=== PATIENT | female | born 1995 | race Caucasian/White ===

== ENCOUNTER 2019-06-25 16:39 | Emergency (ER) | payer BC, MEDICAID, OTHER ==
--- NOTE | 2019-06-25 17:42 | EDM.PDOC ---
ED HPI GENERAL MEDICAL PROBLEM - General Chief Complaint: ENT Problem Stated Complaint: EAR PAIN Time Seen by Provider: 06/25/19 17:33 Source of Information: Reports: Patient History Limitations: Reports: No Limitations - History of Present Illness INITIAL COMMENTS - FREE TEXT/NARRATIVE: HISTORY AND PHYSICAL: History of present illness: Patient is a 24-year-old female presents to the ED today with concern of left- sided ear discomfort and feeling like both of her ears are "muffled." Patient states she was in the shower and was using Q-tips in her ears and noticed that when she got out of the shower she noticed the "muffled" sound in both of her ears. Patient states she then started getting pain in the left side of her ear. Patient states she has not taken anything for her symptoms and denies any other symptoms or concerns. Patient denies fever, chills, chest pain, shortness of breath, or cough. Denies headache, neck stiff ness, change in vision, syncope, or near syncope. Denies nausea, vomiting, abdominal pain, diarrhea, constipation, or dysuria. Has not noted any blood in urine or stool. Patient has been eating and drinking appropriately. Review of systems: As per history of present illness and below otherwise all systems reviewed and negative. Past medical history: As per history of present illness and as reviewed below otherwise noncontributory. Surgical history: As per history of present illness and as reviewed below otherwise noncontributory. Social history: See social history for further information Family history: As per history of present illness and as reviewed below otherwise noncontributory. Physical exam: General: Patient is alert, oriented, and in no acute distress. Patient sitting comfortably on exam table. HEENT: Atraumatic, normocephalic, pupils equal and reactive bilaterally, negative for conjunctival pallor or scleral icterus, mucous membranes moist, there is a large amount of cerumen impacted in bilateral ears, I am able to visualize the right TM which is normal, but unable to visualize the left TM due to cerumen impaction, throat clear, neck supple, nontender, trachea midline. No drooling or trismus noted. No meningeal signs. No hot potato voice noted. Lungs: Clear to auscultation, breath sounds equal bilaterally, chest nontender. Heart: S1S2, regular rate and rhythm without overt murmur Abdomen: Soft, nondistended, nontender. Negative for masses or hepatosplenomegaly. Negative for costovertebral tenderness. Pelvis: Stable nontender. Genitourinary: Deferred. Rectal: Deferred. Skin: Intact, warm, dry. No lesions or rashes noted. Extremities: Atraumatic, negative for cords or calf pain. Neurovascular unremarkable. Neuro: Awake, alert, oriented. Cranial nerves II through XII unremarkable. Cerebellum unremarkable. Motor and sensory unremarkable throughout. Exam nonfocal. Notes: I did try to remove the cerumen of the left external auditory canal with an ear wisp. I was unable to do this as the cerumen is quite hard and impacted. I did offer irrigating the ear in order to visualize the tympanic membrane but patient declines at this time. Discussed the importance for follow-up with a primary care provider. Voices understanding and is agreeable to plan of care. Denies any further questions or concerns at this time. Diagnostics: None Therapeutics: None Prescription: None Impression: Bilateral cerumen impaction Plan: 1. Use [id number] Debrox drops as directed and as discussed. 2. You can alternate ibuprofen and Tylenol as directed for pain and discomfort. 3. Follow up with her primary care provider as discussed. Return to the ED as needed and as discussed. Definitive disposition and diagnosis as appropriate pending reevaluation and review of above. BOTH EARS Pain Score (Numeric/FACES): 6 - Related Data Allergies Allergy/AdvReac Type Severity Reaction Status Date / Time No Known Allergies Allergy Verified 06/25/19 17:16 Home Meds: Home Meds . [No Known Home Meds] 06/25/19 [History] Past Medical History - Past Health History Medical/Surgical History: Denies Medical/Surgical History Social & Family History - Family History Family Medical History: Noncontributory - Tobacco Use Smoking Status *Q: Never Smoker - Caffeine Use Caffeine Use: Reports: None - Recreational Drug Use Recreational Drug Use: No ED ROS GENERAL - Review of Systems Review Of Systems: Comprehensive ROS is negative, except as noted in HPI. ED EXAM, GENERAL - Physical Exam Exam: See Below (See dictation) Course - Vital Signs Last Recorded V/S: Last Vital Signs Temp 97.8 F 06/25/19 18:16 Pulse 71 06/25/19 17:16 Resp 16 06/25/19 17:16 BP 116/75 06/25/19 17:16 Pulse Ox 98 06/25/19 17:16 Departure - Departure Time of Disposition: 17:41 Disposition: Home, Self-Care 01 Clinical Impression: Cerumen impaction Qualifiers: Laterality: bilateral Qualified Code(s): H61.23 - Impacted cerumen, bilateral - Discharge Information Instructions: Earwax Buildup, Adult Referrals: PCP,None [Primary Care Provider] - Forms: ED Department Discharge Additional Instructions: The following information is given to patients seen in the emergency department who are being discharged to home. This information is to outline your options for follow-up care. We provide all patients seen in our emergency department with a follow-up referral. The need for follow-up, as well as the timing and circumstances, are variable depending upon the specifics of your emergency department visit. If you don't have a primary care physician on staff, we will provide you with a referral. We always advise you to contact your personal physician following an emergency department visit to inform them of the circumstance of the visit and for follow-up with them and/or the need for any referrals to a consulting specialist. The emergency department will also refer you to a specialist when appropriate. This referral assures that you have the opportunity for follow-up care with a specialist. All of these measure are taken in an effort to provide you with optimal care, which includes your follow-up. Under all circumstances we always encourage you to contact your private physician who remains a resource for coordinating your care. When calling for follow-up care, please make the office aware that this follow-up is from your recent emergency room visit. If for any reason you are refused follow-up, please contact the [facility] Emergency Department at and asked to speak to the emergency department charge nurse. [facility] [address] [place] [id number] [facility] [address] [place] [id number] 1. Use [id number] Debrox drops as directed and as discussed. 2. You can alternate ibuprofen and Tylenol as directed for pain and discomfort. 3. Follow up with her primary care provider as discussed. Return to the ED as needed and as discussed.
== END 2019-06-25 18:16 | disposition home or self-care (01) ==
LOC: MW.ED 16:39
DX: H61.23 Impacted cerumen, bilateral (principal)
CPT/HCPCS: 99282

== ENCOUNTER 2020-03-21 15:58 | Emergency (ER) | payer MEDICAID ==
--- NOTE | 2020-03-21 16:36 | EDM.PDOC ---
ED HPI GENERAL MEDICAL PROBLEM - General Chief Complaint: General Stated Complaint: MED CLEAR Time Seen by Provider: 03/21/20 16:05 Source of Information: Reports: Patient History Limitations: Reports: No Limitations - History of Present Illness INITIAL COMMENTS - FREE TEXT/NARRATIVE: HISTORY AND PHYSICAL: History of present illness: Patient is a 25-year-old female who presents to the emergency department by law enforcement for medical clearance exam. Patient states she is asymptomatic and offers no current complaints or concerns. She is currently 14 weeks and is seeing somebody at [facility]. Patient denies any fever, chills, headache, change in vision, syncope or near syncope. Denies any chest pain, back pain, shortness of breath or cough. Denies any abdominal pain, nausea, vomiting, diarrhea, constipation or dysuria. Denies any vaginal bleeding, cramping or concerns with her . Has not noted any blood in urine or stool. Patient has been eating and drinking appropriately. Denies any alcohol or drug abuse. Review of systems: As per history of present illness and below otherwise all systems reviewed and negative. Past medical history: As per history of present illness and as reviewed below otherwise noncontributory. Surgical history: As per history of present illness and as reviewed below otherwise noncontributor y. Social history: See social history for further information Family history: As per history of present illness and as reviewed below otherwise noncontributory. Physical exam: General: Well developed and well nourished 25-year-old female. Alert and orientated x 3. Nontoxic in appearance and in no acute distress. Vital signs are stable and have been reviewed by me. Nursing notes were reviewed. She is accompanied by law enforcement. HEENT: Atraumatic, normocephalic, pupils equal and reactive bilaterally, negative for conjunctival pallor or scleral icterus, mucous membranes moist, trachea midline. No drooling or trismus noted. No meningeal signs. No hot potato voice noted. Lungs: Clear to auscultation, breath sounds equal bilaterally, chest nontender. Normal work of breathing, no accessory muscles used. Heart: S1S2, regular rate and rhythm without overt murmur Abdomen: Soft, nondistended, nontender. Negative for costovertebral tenderness. Pelvis: Stable nontender. Skin: Intact, warm, dry. No lesions or rashes noted. Hematologic: No petechiae or purpra. Mucosa appropriate color and normal nail bed color and refill. Extremities: Atraumatic, moves all extremities per self without difficulty or deficits, negative for cords or calf pain. Neurovascular unremarkable. Neuro: Awake, alert, oriented. Cranial nerves II through XII unremarkable. Cerebellum unremarkable. Motor and sensory unremarkable throughout. Exam nonfocal. Psychiatric: Mood and affect are appropriate. Normal thought process. Answering questions appropriately. Notes: My physical exam is within normal limits. Her vital signs are stable. I will discharge her into the custody of law enforcement. Law enforcement and patient have no specific concerns at this time. We discussed signs and symptoms that would prompt them to return to the Emergency Department. Medication, follow up and supportive care measures were reviewed and discussed. Voices understanding and is agreeable to plan of care. Denies any further questions or concerns at this time. Diagnostics: None Therapeutics: None Prescription: None Impression: Encounter for medical screening exam Plan: 1. Today your physical exam was within normal limits. We always encourage you to follow up with your primary care provider or recommended specialist in the next few days for re-evaluation and further care/management. If your symptoms should worsen, new symptoms develop or any of the signs and symptoms we discussed should arise please return to the emergency room or call 911 (if needed). 2. You can alternate Tylenol and/or ibuprofen as needed for pain management. Definitive disposition and diagnosis as appropriate pending reevaluation and review of above. - Related Data Allergies Allergy/AdvReac Type Severity Reaction Status Date / Time No Known Allergies Allergy Verified 03/21/20 16:35 Home Meds: Home Meds Pnv No.95/Ferrous Fum/Folic AC [ Caplet] 1 each PO DAILY 03/21/20 [History] Past Medical History - Past Health History Medical/Surgical History: Denies Medical/Surgical History Social & Family History - Family History Family Medical History: Noncontributory - Caffeine Use Caffeine Use: Reports: None ED ROS GENERAL - Review of Systems Review Of Systems: Comprehensive ROS is negative, except as noted in HPI. ED EXAM, GENERAL - Physical Exam Exam: See Below (See dictation) Course - Vital Signs Last Recorded V/S: Last Vital Signs Temp Pulse 69 03/21/20 16:35 Resp 16 03/21/20 16:35 BP 118/68 03/21/20 16:35 Pulse Ox 98 03/21/20 16:35 Departure - Departure Time of Disposition: 16:43 Disposition: Home, Self-Care 01 Clinical Impression: Encounter for medical screening examination - Discharge Information Instructions: Medical Screening Exam Referrals: PCP,None [Primary Care Provider] - Forms: ED Department Discharge Additional Instructions: The following information is given to patients seen in the emergency department who are being discharged to home. This information is to outline your options for follow-up care. We provide all patients seen in our emergency department with a follow-up referral. The need for follow-up, as well as the timing and circumstances, are variable depending upon the specifics of your emergency department visit. If you don't have a primary care physician on staff, we will provide you with a referral. We always advise you to contact your personal physician following an emergency department visit to inform them of the circumstance of the visit and for follow-up with them and/or the need for any referrals to a consulting specialist. The emergency department will also refer you to a specialist when appropriate. This referral assures that you have the opportunity for follow-up care with a specialist. All of these measure are taken in an effort to provide you with optimal care, which includes your follow-up. Under all circumstances we always encourage you to contact your private physician who remains a resource for coordinating your care. When calling for follow-up care, please make the office aware that this follow-up is from your recent emergency room visit. If for any reason you are refused follow-up, please contact the [facility] Emergency Department at and asked to speak to the emergency department charge nurse. [facility] [address] [place] [id number] [id number] Thank you for choosing the [facility] emergency department in [place] for your medical needs today. It was a pleasure caring for you. Today you were seen in the emergency department for encounter for medical screening exam 1. Today your physical exam was within normal limits. We always encourage you to follow up with your primary care provider or recommended specialist in the next few days for re-evaluation and further care/management. If your symptoms should worsen, new symptoms develop or any of the signs and symptoms we discussed should arise please return to the emergency room or call 911 (if needed). 2. You can alternate Tylenol and/or ibuprofen as needed for pain management. Sepsis Event Note (ED) - Focused Exam Vital Signs: Vital Signs Pulse Resp BP Pulse Ox 03/21/20 16:35 69 16 118/68 98
== END 2020-03-21 16:50 | disposition home or self-care (01) ==
LOC: MW.ED 15:58
DX: O99.89 Other specified diseases and conditions complicating pregnancy, childbirth and the puerperium (principal); Z02.89 Encounter for other administrative examinations; Z3A.14 14 weeks gestation of pregnancy
CPT/HCPCS: 99282; 99283

== ENCOUNTER 2020-04-22 13:15 | Emergency (ER) | payer MEDICAID ==
--- NOTE | 2020-04-22 14:40 | EDM.PDOC ---
ED HPI GENERAL MEDICAL PROBLEM - General Chief Complaint: General Stated Complaint: ABCESS TOOTH Time Seen by Provider: 04/22/20 13:20 Source of Information: Reports: Patient History Limitations: Reports: No Limitations - History of Present Illness INITIAL COMMENTS - FREE TEXT/NARRATIVE: HISTORY AND PHYSICAL: History of present illness: Patient is a 25-year-old female who presents to the ED today with concern of dental abscess that I drained just before coming to the ED. Patient states when she was at work she felt the abscess pop and had pus come out of the area. Patient states she is 18 weeks in gestation and denies any abdominal pain, cramping, vaginal bleeding, or change in vaginal discharge. Patient denies any other symptoms or concerns. Patient denies fever, chills, chest pain, shortness of breath, or cough. Denies headache, neck stiff ness, change in vision, syncope, or near syncope. Denies nausea, vomiting, abdominal pain, diarrhea, constipation, or dysuria. Has not noted any blood in urine or stool. Patient has been eating and drinking appropriately. Review of systems: As per history of present illness and below otherwise all systems reviewed and negative. Past medical history: As per history of present illness and as reviewed below otherwise noncontributory. Surgical history: As per history of present illness and as reviewed below otherwise noncontributory. Social history: See social history for further information Family history: As per history of present illness and as reviewed below otherwise noncontributory. Physical exam: General: Patient is alert, oriented, and in no acute distress. Patient sitting comfortably on exam table. HEENT: Tooth #5 has an area of prior abscess that has already been drained with surrounding edema and erythema of the gumline. Otherwise, atraumatic, normocephalic, pupils equal and reactive bilaterally, negative for conjunctival pallor or scleral icterus, mucous membranes moist, TMs normal bilaterally, throat clear, neck supple, nontender, trachea midline. No drooling or trismus noted. No meningeal signs. No hot potato voice noted. Lungs: Clear to auscultation, breath sounds equal bilaterally, chest nontender. Heart: S1S2, regular rate and rhythm without overt murmur Abdomen: Soft, nondistended, nontender. Negative for masses or hepatosplenomegaly. Negative for costovertebral tenderness. Pelvis: Stable nontender. Genitourinary: Deferred. Rectal: Deferred. Skin: Intact, warm, dry. No lesions or rashes noted. Extremities: Atraumatic, negative for cords or calf pain. Neurovascular un remarkable. Neuro: Awake, alert, oriented. Cranial nerves II through XII unremarkable. Cerebellum unremarkable. Motor and sensory unremarkable throughout. Exam nonfocal. Notes: heart tones at bedside 137. Discussed importance for follow-up with a dentist as well as her [employer] provider. Signs and symptoms that would prompt return to the ED thoroughly discussed with patient. Voices understanding and is agreeable to plan of care. Denies any further questions or concerns at this time. Diagnostics: None Therapeutics: None Prescription: Augmentin Impression: Dental abscess Plan: 1. Please take medication as prescribed. 2. Tylenol as directed and as needed for pain management. This is safe to use in . 3. Follow-up with a dentist and your OBGYN for definitive care as discussed. Return to the ED as needed and as discussed. Definitive disposition and diagnosis as appropriate pending reevaluation and review of above. 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 ED EXAM, GENERAL - Physical Exam Exam: See Below (see dictation) Course - Vital Signs Last Recorded V/S: Last Vital Signs Temp 97.4 F 04/22/20 14:06 Pulse 81 09/18/20 14:06 Resp 18 04/22/20 14:06 BP 110/70 04/22/20 14:06 Pulse Ox 98 04/22/20 14:06 - Orders/Labs/Meds Orders: Active Orders 24 hr Category Date Time Status Communication Order [RC] STAT Care 04/22/20 14:35 Active Departure - Departure Time of Disposition: 14:38 Disposition: Home, Self-Care 01 Clinical Impression: Dental abscess - Discharge Information Prescriptions: Amoxicillin/Potassium Clav [Augmentin 500-125 Tablet] 1 each PO BID 5 Days #10 tablet Instructions: Dental Abscess, [id number] Referrals: PCP,None [Primary Care Provider] - Forms: ED Department Discharge Additional Instructions: The following information is given to patients seen in the emergency department who are being discharged to home. This information is to outline your options for follow-up care. We provide all patients seen in our emergency department with a follow-up referral. The need for follow-up, as well as the timing and circumstances, are variable depending upon the specifics of your emergency department visit. If you don't have a primary care physician on staff, we will provide you with a referral. We always advise you to contact your personal physician following an emergency department visit to inform them of the circumstance of the visit and for follow-up with them and/or the need for any referrals to a consulting specialist. The emergency department will also refer you to a specialist when appropriate. This referral assures that you have the opportunity for follow-up care with a specialist. All of these measure are taken in an effort to provide you with optimal care, which includes your follow-up. Under all circumstances we always encourage you to contact your private physician who remains a resource for coordinating your care. When calling for follow-up care, please make the office aware that this follow-up is from your recent emergency room visit. If for any reason you are refused follow-up, please contact the [facility] Emergency Department at and asked to speak to the emergency department charge nurse. [facility] [address] [place] [id number] [address] [facility] [address] [place] [address] 1. Please take medication as prescribed. 2. Tylenol as directed and as needed for pain management. This is safe to use in . 3. Follow-up with a dentist and your OBGYN for definitive care as discussed. Return to the ED as needed and as discussed. Sepsis Event Note (ED) - Evaluation Sepsis Screening Result: No Definite Risk - Focused Exam Vital Signs: Vital Signs Temp Pulse Resp BP Pulse Ox 04/22/20 14:06 97.4 F 81 18 110/70 98 - My Orders Last 24 Hours: My Active Orders 04/22/20 14:35 Communication Order [RC] STAT - Assessment/Plan Last 24 Hours: My Active Orders 04/22/20 14:35 Communication Order [RC] STAT
== END 2020-04-22 15:21 | disposition home or self-care (01) ==
LOC: MW.ED 13:15
DX: O99.612 Diseases of the digestive system complicating pregnancy, second trimester (principal); K04.7 Periapical abscess without sinus; Z3A.18 18 weeks gestation of pregnancy
CPT/HCPCS: 99282

== ENCOUNTER 2020-09-25 21:12 | Inpatient (IN) | payer MEDICAID ==
[2020-09-25] MEDS ORDERED: Water For Irrigation,Sterile 1,000 ML Container IRR PRN (22:18)
[2020-09-25] MEDS ORDERED: Misoprostol 200 MCG Tab PO PRN (22:18)
[2020-09-25] MEDS ORDERED: Sodium Chloride 0.9% 10 ML Syringe FLUSH PRN (22:18)
[2020-09-25] MEDS ORDERED: Butorphanol 1 MG/ML SDV IVPUSH PRN (22:18)
[2020-09-25] MEDS ORDERED: Lidocaine 1% 50 ML MDV INJECT PRN (22:18)
[2020-09-25] MEDS ORDERED: Sodium Chloride 0.9% 10 ML SDV IV PRN (22:18)
[2020-09-25] MEDS ORDERED: Methylergonovine 0.2 MG/1 ML Amp IM PRN (22:18)
[2020-09-25] MEDS ORDERED: Nalbuphine 10 MG/1 ML Vial IVPUSH PRN (22:18)
[2020-09-25] MEDS ORDERED: Sodium Chloride 0.9% 2.5 ML Syringe FLUSH PRN (22:18)
[2020-09-25] MEDS ORDERED: Carboprost Tromethamine 250 MCG/1 ML Amp IM PRN (22:18)
[2020-09-25] MEDS ORDERED: Tranexamic Acid 1,000 MG in Sodium Chloride 0.9% 100 ML IV PRN (22:18)
[2020-09-25] MEDS: Lactated Ringers 1,000 ML IV SCH (22:30)
[2020-09-25] MEDS ORDERED: Oxytocin/0.9 % Sodium Chloride 30 UNIT/500 ML BAG IV SCH (22:30)
[2020-09-25] MEDS ORDERED: fentaNYL 100 MCG/2 ML SDV ONE (23:26)
[2020-09-25] MEDS ORDERED: Ropivacaine HCl/PF 100 ML ONE (23:27)
[2020-09-25] MEDS ORDERED: Ropivacaine 0.2% PF 2 MG/ML 20 ML SDV ONE (23:27)
--- NOTE | 2020-09-26 00:10 | PCM.PREANE ---
Preanesthetic Assessment - Procedure Proposed Procedure: labor epidural - Anesthesia/Transfusion/Family Hx Anesthesia History: Prior Anesthesia Without Reaction (epidural 5 yrs ago. no surgery) Family History of Anesthesia Reaction: No Transfusion History: No Prior Transfusion(s) - Review of Systems General: No Symptoms Pulmonary: No Symptoms Cardiovascular: No Symptoms Gastrointestinal: No Symptoms Neurological: No Symptoms Other: Reports: None - Physical Assessment Height: 5 ft Weight: 69.853 kg ASA Class: 2 Mental Status: Alert & Oriented x3 Airway Class: Mallampati = 1 Dentition: Reports: Normal Dentition Thyro-Mental Finger Breadths: 3 Mouth Opening Finger Breadths: 3 ROM/Head Extension: Full Lungs: Clear to Auscultation Cardiovascular: Regular Rate, Regular Rhythm - Lab Values: Laboratory Last Values WBC 8.17 K/uL (4.0-11.0) 09/25/20 22:30 RBC 4.36 M/uL (4.30-5.90) 09/25/20 22:30 Hgb 11.4 g/dL (12.0-16.0) L 09/25/20 22:30 Hct 35.7 % (36.0-46.0) L 09/25/20 22:30 MCV 81.9 fL (80.0-98.0) 09/25/20 22:30 MCH 26.1 pg (27.0-32.0) L 09/25/20 22:30 MCHC 31.9 g/dL (31.0-37.0) 09/25/20 22:30 RDW Std Deviation 42.3 fl (28.0-62.0) 09/25/20 22:30 RDW Coeff of Jennifer 14 % (11.0-15.0) 09/25/20 22:30 Plt Count 295 K/uL (150-400) 09/25/20 22: MPV 10.00 fL (7.40-12.00) 09/25/20 22: Nucleated RBC % 0.0 /100WBC 09/25/20 22:30 Nucleated RBCs # 0 K/uL 09/25/20 22:30 Blood Type A POSITIVE 09/25/20 22:35 Antibody Screen NEGATIVE 09/25/20 22:35 - Allergies Allergies/Adverse Reactions: Allergies Allergy/AdvReac Type Severity Reaction Status Date / Time No Known Allergies Allergy Verified 09/13/20 10:52 [facility] - Blood Blood Available: Yes Product(s) Available: PRBC - Anesthesia Plan Pre-Op Medication Ordered: None - Acknowledgements Anesthesia Type Planned: Epidural Pt an Appropriate Candidate for the Planned Anesthesia: Yes Alternatives and Risks of Anesthesia Discussed w Pt/Guardian: Yes Pt/Guardian Understands and Agrees with Anesthesia Plan: Yes PreAnesthesia Questionnaire - Past Health History Medical/Surgical History: Denies Medical/Surgical History Gastrointestinal History: Reports: None [employer] History: Reports: - Infectious Disease History Infectious Disease History: Reports: Chicken Pox - HOME MEDS Home Medications: Home Meds Pnv No.95/Ferrous Fum/Folic AC [ Caplet] 1 each PO DAILY 03/21/20 [History] Amoxicillin/Potassium Clav [Augmentin 500-125 Tablet] 1 each PO BID 5 Days #10 tablet 04/22/20 [Rx] - CURRENT (IN HOUSE) MEDS Current Meds: Current Medications Butorphanol Tartrate (Stadol) 1 mg IVPUSH Q1H PRN PRN Reason: Pain Carboprost Tromethamine (Hemabate Ds) 250 mcg IM ASDIRECTED PRN PRN Reason: Post Hemorrhage Oxytocin/Sodium Chloride (Oxytocin 30 Unit/500 Ml-Ns) 30 unit in 500 mls @ 999 mls/hr IV TITRATE [facility] Tranexamic Acid 1,000 mg/ (Sodium Chloride) 110 mls @ 660 mls/hr IV ONETIME PRN PRN Reason: Bleeding Lactated Ringer's (Ringers, Lactated) 1,000 mls @ 150 mls/hr IV ASDIRECTED [facility] Last Admin: 09/25/20 22:30 Dose: 999 mls/hr Documented by: Lidocaine HCl (Xylocaine 1%) 50 ml INJECT ONETIME PRN PRN Reason: Laceration repair Methylergonovine Maleate (Methergine) 0.2 mg IM ASDIRECTED PRN PRN Reason: Post Hemorrhage Misoprostol (Cytotec) 200 mcg PO ONETIME PRN PRN Reason: Post Hemorrhage Nalbuphine HCl (Nubain) 10 mg IVPUSH Q1H PRN PRN Reason: Pain (severe 7-10) Sodium Chloride (Saline Flush) 10 ml FLUSH ASDIRECTED PRN PRN Reason: Keep Vein Open Sodium Chloride (Saline Flush) 2.5 ml FLUSH ASDIRECTED PRN PRN Reason: Keep Vein Open Sodium Chloride (Normal Saline) 10 ml IV ASDIRECTED PRN PRN Reason: IV Use Sterile Water (Sterile Water For Irrigation) 1,000 ml IRR ASDIRECTED PRN PRN Reason: delivery Discontinued Medications Fentanyl (Sublimaze) Confirm Administered Dose 100 mcg .ROUTE .STK-MED ONE Stop: 09/25/20 23:27 Ropivacaine (Naropin 0.2%) Confirm Administered Dose 100 mls @ as directed .ROUTE .STK-MED ONE Stop: 09/25/20 23:28 Ropivacaine (Naropin 0.2%) Confirm Administered Dose 20 ml .ROUTE .STK-MED ONE Stop: 09/25/20 23:28
[2020-09-26] MEDS: Lactated Ringers 1,000 ML IV SCH ×2 (01:00→01:01)
[2020-09-26] MEDS ORDERED: oxyCODONE 5 MG Tab PO PRN (02:53)
[2020-09-26] MEDS ORDERED: Witch Hazel Medicated Pads 40/Jar TOP PRN (02:53)
[2020-09-26] MEDS ORDERED: Lanolin 100% Cream 7 GM Tube TOP PRN (02:53)
[2020-09-26] MEDS ORDERED: Acetaminophen 500 MG Tab PO PRN (02:53)
[2020-09-26] MEDS ORDERED: Ibuprofen 800 MG Tab PO PRN (02:53)
[2020-09-26] MEDS ORDERED: Docusate Sodium 100 MG Cap PO PRN (02:53)
[2020-09-26] MEDS ORDERED: Bisacodyl 10 MG Supp RECTAL PRN (02:53)
[2020-09-26] MEDS ORDERED: Benzocaine/Menthol 20%-0.5% Spray 78 GM Cannister TOP PRN (02:53)
--- NOTE | 2020-09-26 03:00 | PCM.DEL ---
<Guerita Recio - Last Filed: 09/26/20 02:52> L & D Note - General Info Date of Service: 09/26/20 Mother's Due Date: 09/18/20 - Delivery Note Labor: Spontaneous, Augmented by ARM Delivery Outcome: Livebirth Delivery Method: Spontaneous Vaginal Delivery-Single Presentation: Vertex Nuchal Cord: None Anesthesia Type: Epidural Amniotic Fluid Description: Clear Laceration: None Placenta: Intact, Spontaneous Cord: 3 Vessels Estimated Blood Loss: 200 Resuscitation Needed: Yes [place]: Suctioned, Bulb Syringe, Stimulated, Warmed Score 1 min: 8 Score 5 min: 9 - General Info Date of Service: 09/26/20 Functional Status: Reports: Pain Controlled - Review of Systems General: Reports: No Symptoms HEENT: Reports: No Symptoms Pulmonary: Reports: No Symptoms Cardiovascular: Reports: No Symptoms Gastrointestinal: Reports: No Symptoms Genitourinary: Reports: No Symptoms Musculoskeletal: Reports: No Symptoms Skin: Reports: No Symptoms Neurological: Reports: No Symptoms Psychiatric: Reports: No Symptoms - Patient Data Weight - Most Recent: 69.853 kg Lab Results Last 24 Hours: Laboratory Results - last 24 hr 09/25/20 09/25/20 Range/Units 22:30 22:35 WBC 8.17 (4.0-11.0) K/uL RBC 4.36 (4.30-5.90) M/uL Hgb 11.4 L (12.0-16.0) g/dL Hct 35.7 L (36.0-46.0) % MCV 81.9 (80.0-98.0) fL MCH 26.1 L (27.0-32.0) pg MCHC 31.9 (31.0-37.0) g/dL RDW Std Deviation 42.3 (28.0-62.0) fl RDW Coeff of Jennifer 14 (11.0-15.0) % Plt Count 295 (150-400) K/uL MPV 10.00 (7.40-12.00) fL Nucleated RBC % 0.0 /100WBC Nucleated RBCs # 0 K/uL Blood Type A POSITIVE Antibody Screen NEGATIVE Med Orders - Current: Current Medications Butorphanol Tartrate (Stadol) 1 mg IVPUSH Q1H PRN PRN Reason: Pain Carboprost Tromethamine (Hemabate Ds) 250 mcg IM ASDIRECTED PRN PRN Reason: Post Hemorrhage Oxytocin/Sodium Chloride (Oxytocin 30 Unit/500 Ml-Ns) 30 unit in 500 mls @ 999 mls/hr IV TITRATE [facility] Tranexamic Acid 1,000 mg/ (Sodium Chloride) 110 mls @ 660 mls/hr IV ONETIME PRN PRN Reason: Bleeding Lactated Ringer's (Ringers, Lactated) 1,000 mls @ 150 mls/hr IV ASDIRECTED [facility] Last Admin: 09/26/20 01:01 Dose: 150 mls/hr Documented by: Lidocaine HCl (Xylocaine 1%) 50 ml INJECT ONETIME PRN PRN Reason: Laceration repair Methylergonovine Maleate (Methergine) 0.2 mg IM ASDIRECTED PRN PRN Reason: Post Hemorrhage Misoprostol (Cytotec) 200 mcg PO ONETIME PRN PRN Reason: Post Hemorrhage Nalbuphine HCl (Nubain) 10 mg IVPUSH Q1H PRN PRN Reason: Pain (severe 7-10) Sodium Chloride (Saline Flush) 10 ml FLUSH ASDIRECTED PRN PRN Reason: Keep Vein Open Sodium Chloride (Saline Flush) 2.5 ml FLUSH ASDIRECTED PRN PRN Reason: Keep Vein Open Sodium Chloride (Normal Saline) 10 ml IV ASDIRECTED PRN PRN Reason: IV Use Sterile Water (Sterile Water For Irrigation) 1,000 ml IRR ASDIRECTED PRN PRN Reason: delivery Discontinued Medications Fentanyl (Sublimaze) Confirm Administered Dose 100 mcg .ROUTE .STK-MED ONE Stop: 09/25/20 23:27 Ropivacaine (Naropin 0.2%) Confirm Administered Dose 100 mls @ as directed .ROUTE .STK-MED ONE Stop: 09/25/20 23:28 Ropivacaine (Naropin 0.2%) Confirm Administered Dose 20 ml .ROUTE .STK-MED ONE Stop: 09/25/20 23:28 - Exam General: Alert, Oriented HEENT: Pupils Equal, Pupils Reactive, EOMI, Mucous Membr. Moist/[place] Neck: Supple Lungs: Clear to Auscultation, Normal Respiratory Effort Cardiovascular: Regular Rate, Regular Rhythm GI/Abdominal Exam: Normal Bowel Sounds, Soft, Non-Tender, No Organomegaly, No Distention, No Abnormal Bruit, No Mass, Pelvis Stable (Female) Exam: Other (post vaginal delivery) Back Exam: Normal Inspection, Full Range of Motion Extremities: Normal Inspection, Normal Range of Motion, Non-Tender, No Pedal Edema, Normal Capillary Refill Skin: Warm, Dry, Intact Wound/Incisions: Healing Well Neurological: No New Focal Deficit Psy/Mental Status: Alert, Normal Affect, Normal Mood - Problem List & Annotations (1) Vaginal delivery SNOMED Code(s): 565715303 Code(s): O80 - ENCOUNTER FOR FULL-TERM UNCOMPLICATED DELIVERY Status: Acute Current Visit: Yes Onset Date: ~09/26/20 - Problem List Review Problem List Initiated/Reviewed/Updated: Yes - Assessment Assessment:: 25 year old at 41+1 gestation presented in spontaneous labor augmented with AROM, delivered viable female , apgars 8 & 9. Some small perineal abrasions noted - not repaired as they were hemostatic. Mom and baby stable. - Plan Plan:: 1. Routine pp cares <Catalina Armstrong - Last Filed: 09/26/20 03:07> - Patient Data Lab Results Last 24 Hours: Laboratory Results - last 24 hr 09/25/20 09/25/20 Range/Units 22:30 22:35 WBC 8.17 (4.0-11.0) K/uL RBC 4.36 (4.30-5.90) M/uL Hgb 11.4 L (12.0-16.0) g/dL Hct 35.7 L (36.0-46.0) % MCV 81.9 (80.0-98.0) fL MCH 26.1 L (27.0-32.0) pg MCHC 31.9 (31.0-37.0) g/dL RDW Std Deviation 42.3 (28.0-62.0) fl RDW Coeff of Jennifer 14 (11.0-15.0) % Plt Count 295 (150-400) K/uL MPV 10.00 (7.40-12.00) fL Nucleated RBC % 0.0 /100WBC Nucleated RBCs # 0 K/uL Blood Type A POSITIVE Antibody Screen NEGATIVE Med Orders - Current: Current Medications Acetaminophen (Tylenol Extra Strength) 1,000 mg PO Q6H PRN PRN Reason: Pain Benzocaine/Menthol (Dermoplast Pain Relief 20%-0.5% Coleman) 78 gm TOP ASDIRECTED PRN PRN Reason: Perineal Comfort Measure Bisacodyl (Dulcolax) 10 mg RECTAL ONETIME PRN PRN Reason: Constipation Butorphanol Tartrate (Stadol) 1 mg IVPUSH Q1H PRN PRN Reason: Pain Carboprost Tromethamine (Hemabate Ds) 250 mcg IM ASDIRECTED PRN PRN Reason: Post Hemorrhage Docusate Sodium (Colace) 100 mg PO BID PRN PRN Reason: Constipation Emollient Ointment (Lansinoh Hpa) 0 gm TOP ASDIRECTED PRN PRN Reason: Sore Nipples Oxytocin/Sodium Chloride (Oxytocin 30 Unit/500 Ml-Ns) 30 unit in 500 mls @ 999 mls/hr IV TITRATE [facility] Tranexamic Acid 1,000 mg/ (Sodium Chloride) 110 mls @ 660 mls/hr IV ONETIME PRN PRN Reason: Bleeding Lactated Ringer's (Ringers, Lactated) 1,000 mls @ 150 mls/hr IV ASDIRECTED [facility] Last Admin: 09/26/20 01:01 Dose: 150 mls/hr Documented by: Ibuprofen (Motrin) 800 mg PO Q8H PRN PRN Reason: Pain Lidocaine HCl (Xylocaine 1%) 50 ml INJECT ONETIME PRN PRN Reason: Laceration repair Methylergonovine Maleate (Methergine) 0.2 mg IM ASDIRECTED PRN PRN Reason: Post Hemorrhage Misoprostol (Cytotec) 200 mcg PO ONETIME PRN PRN Reason: Post Hemorrhage Nalbuphine HCl (Nubain) 10 mg IVPUSH Q1H PRN PRN Reason: Pain (severe 7-10) Oxycodone HCl (Oxycodone) 5 mg PO Q2H PRN PRN Reason: Pain Sodium Chloride (Saline Flush) 10 ml FLUSH ASDIRECTED PRN PRN Reason: Keep Vein Open Sodium Chloride (Saline Flush) 2.5 ml FLUSH ASDIRECTED PRN PRN Reason: Keep Vein Open Sodium Chloride (Normal Saline) 10 ml IV ASDIRECTED PRN PRN Reason: IV Use Sterile Water (Sterile Water For Irrigation) 1,000 ml IRR ASDIRECTED PRN PRN Reason: delivery Witch Itzel (Tucks) 1 pad TOP ASDIRECTED PRN PRN Reason: comfort care Discontinued Medications Fentanyl (Sublimaze) Confirm Administered Dose 100 mcg .ROUTE .STK-MED ONE Stop: 09/25/20 23:27 Ropivacaine (Naropin 0.2%) Confirm Administered Dose 100 mls @ as directed .ROUTE .STK-MED ONE Stop: 09/25/20 23:28 Ropivacaine (Naropin 0.2%) Confirm Administered Dose 20 ml .ROUTE .STK-MED ONE Stop: 09/25/20 23:28 - Problem List & Annotations (1) Vaginal delivery SNOMED Code(s): 265217522 Code(s): O80 - ENCOUNTER FOR FULL-TERM UNCOMPLICATED DELIVERY Status: Acute Current Visit: Yes Onset Date: ~09/26/20 - My Orders Last 24 Hours: My Active Orders 09/26/20 02:53 Patient Status [ADT] Routine May Shower [RC] ASDIRECTED Notify Provider Vital Signs [RC] ASDIRECTED Up ad Ana [RC] ASDIRECTED Vital Signs [RC] PER UNIT ROUTINE Acetaminophen [Tylenol Extra Strength] 1,000 mg PO Q6H PRN Benzocaine/Menthol [Dermoplast Pain Relief 20%-0.5% Coleman] 78 gm TOP ASDIRECTED PRN Docusate Sodium [Colace] 100 mg PO BID PRN Ibuprofen [Motrin] 800 mg PO Q8H PRN Lanolin [Lansinoh HPA] See Dose Instructions TOP ASDIRECTED PRN bisacodyL [Dulcolax] 10 mg RECTAL ONETIME PRN oxyCODONE 5 mg PO Q2H PRN dennis Veloz [Anat] 1 pad TOP ASDIRECTED PRN Assess Lochia [WOMSER] Per Unit Routine Assess Uterine Involution [WOMSER] Per Unit Routine Breast Pump [WOMSER] Per Unit Routine Peripheral IV Discontinue [OM.PC] Routine 09/26/20 02:54 Cooling Warming Measures [RC] ASDIRECTED Ice Therapy [OM.PC] Per Unit Routine Perineal Care [OM.PC] Per Unit Routine Sitz Bath [OM.PC] Per Unit Routine 09/26/20 02:55 BLOOD GAS ARTERIAL UMBILICAL [BG] Routine BLOOD GAS VENOUS UMBILICAL [BG] Routine 09/26/20 Breakfast Regular Diet [DIET] 09/27/20 05:11 HEMOGLOBIN/HEMATOCRIT,HH [HEME] Timed - Plan Plan:: I have reviewed and agree with the above. Admit to unit for routine care.
[2020-09-26] MEDS ORDERED: Methylergonovine 0.2 MG/1 ML Amp IM PRN (06:01)
[2020-09-26] MEDS ORDERED: Misoprostol 200 MCG Tab ONE (06:46)
--- NOTE | 2020-09-26 07:03 | PCM.SN.2 ---
- Free Text/Narrative Note: Notified by RN of moderate-large amount of clot with every fundal rub. Had been given 0.2mg IM Methergine per my order. She has voided multiple times. Bimanual exam performed. Large amount of clot within uterus and lower uterine segment. After evacuation of clot, fundus firm and 2 below umbilicus. 1000mcg Misoprostol given per rectum. Will check hemoglobin now and at noon. 2 units packed RBCs on hold. Reviewed risks of blood transfusion if necessary, including fever, itching, 1/1,000,000 HIV and 1/500,000 Hepatitis. Patient voiced understanding and agrees to transfusion if felt to be necessary. She denies dizziness at this time but we discussed notifying RN if she has dizziness with ambulation today.
[2020-09-26] MEDS ORDERED: Misoprostol 200 MCG Tab RECTAL ONE (07:30)
--- NOTE | 2020-09-26 08:23 | OR ---
SURGEON: Catalina Armstrong MD DATE OF PROCEDURE: 09/26/2020 PREOPERATIVE DIAGNOSES: 1. A 25-year-old G3, P2-0-0-2, at 41 weeks and 1 day gestation. 2. Labor. 3. Group B Streptococcus negative. POSTOPERATIVE DIAGNOSES: 1. A 25-year-old G3, P3-0-0-3, at 41 weeks and 1 day gestation. 2. Labor. 3. Group B Streptococcus negative. PROCEDURE: Spontaneous vaginal delivery. PRIMARY SURGEON: Catalina Armstrong MD VERSE WRITER: SERGEI Brumfield ANESTHESIA: Epidural. ESTIMATED BLOOD LOSS: 200 mL. FINDINGS: A live female infant in a cephalic presentation. scores were 8 and 9 at 1 and 5 minutes respectively. Weight was 3650 g. Perineal abrasions, hemostatic without repair. The placenta was intact with a 3-vessel cord. INDICATIONS: This is a 25-year-old G3, P2-0-0-2, who presented at 41 weeks and 1 day gestation complaining of contractions. Upon presentation, her cervix was found to be 4 to 5 cm dilated with a bulgy bag of water. She was joselyn every 3 to 4 minutes. She was admitted to Labor and Delivery. A COVID swab was negative. She was allowed to labor and progressed to 8 cm dilated. She received an epidural for pain control. Artificial rupture of membranes occurred with clear fluid noted. She progressed to complete cervical dilation. DESCRIPTION OF PROCEDURE: I arrived to the room with the 's head at +3 station. Over the next 3 contractions, the patient pushed and delivered a live female . The head was delivered, followed by the shoulders and the remainder of the body. The infant was placed on the maternal abdomen. After approximately 30 seconds, the cord was clamped and cut. The was taken to the warmer to be evaluated by the nurse and waiter/waitress head. Cord blood and cord gases were obtained. The placenta then delivered intact with a 3-vessel cord via the Traylor-Rodarte maneuver. The perineum was inspected, and minor abrasions were noted; however, these were hemostatic without repair. The fundus was firm below the umbilicus. The patient and infant tolerated the delivery well. [id number] / MODL /[id number] MTDD
--- NOTE | 2020-09-26 10:00 | PCM48HPAN ---
Post Anesthesia Note - EVALUATION WITHIN 48HRS OF ANESTHETIC Vital Signs in Normal Range: Yes Patient Participated in Evaluation: Yes Respiratory Function Stable: Yes Airway Patent: Yes Cardiovascular Function Stable: Yes Hydration Status Stable: Yes Pain Control Satisfactory: Yes Nausea and Vomiting Control Satisfactory: Yes Mental Status Recovered: Yes Vital Signs: Last Vital Signs Temp 37.0 C 09/26/20 07:15 Pulse 102 H 09/26/20 07:15 Resp 18 09/26/20 07:15 BP 115/75 09/26/20 07:15 Pulse Ox 99 09/26/20 07:15
--- NOTE | 2020-09-27 08:52 | PCM.PNPP ---
<Guerita Recio - Last Filed: 09/27/20 08:47> - General Info Date of Service: 09/27/20 Admission Dx/Problem (Free Text): Vaginal delivery Subjective Update: Patient doing well this am. Pain minimal - not needing pain medication. Voiding/stooling appropriately. Ambulating without difficulty. Bottle feeding. Hgb 7.3 this am - no dizziness, lightheadedness, excess fatigue. Hemodynamically stable. Functional Status: Reports: Pain Controlled - Review of Systems General: Reports: No Symptoms HEENT: Reports: No Symptoms Pulmonary: Reports: No Symptoms Cardiovascular: Reports: No Symptoms Gastrointestinal: Reports: No Symptoms Genitourinary: Reports: No Symptoms Musculoskeletal: Reports: No Symptoms Skin: Reports: No Symptoms Neurological: Reports: No Symptoms Psychiatric: Reports: No Symptoms - General Info Date of Service: 09/27/20 - Patient Data Vital Signs - Most Recent: Last Vital Signs Temp 97.7 F 09/27/20 04:03 Pulse 77 09/27/20 04:03 Resp 16 09/27/20 04:03 BP 109/70 09/27/20 04:03 Pulse Ox 98 09/27/20 04:03 Weight - Most Recent: 69.853 kg Lab Results - Last 24 Hours: Laboratory Results - last 24 hr 09/26/20 09/27/20 Range/Units 12:05 05:20 WBC 11.89 H (4.0-11.0) K/uL RBC 3.50 L (4.30-5.90) M/uL Hgb 9.3 L 7.3 L (12.0-16.0) g/dL Hct 28.6 L 22.9 L (36.0-46.0) % MCV 81.7 (80.0-98.0) fL MCH 26.6 L (27.0-32.0) pg MCHC 32.5 (31.0-37.0) g/dL RDW Std Deviation 42.0 (28.0-62.0) fl RDW Coeff of Jennifer 14 (11.0-15.0) % Plt Count 258 (150-400) K/uL MPV 9.70 (7.40-12.00) fL Nucleated RBC % 0.0 /100WBC Nucleated RBCs # 0 K/uL Med Orders - Current: Current Medications Acetaminophen (Tylenol Extra Strength) 1,000 mg PO Q6H PRN PRN Reason: Pain Last Admin: 09/26/20 05:51 Dose: 1,000 mg Documented by: Benzocaine/Menthol (Dermoplast Pain Relief 20%-0.5% [place]) 78 gm TOP ASDIRECTED PRN PRN Reason: Perineal Comfort Measure Last Admin: 09/26/20 04:25 Dose: 1 canister Documented by: Bisacodyl (Dulcolax) 10 mg RECTAL ONETIME PRN PRN Reason: Constipation Butorphanol Tartrate (Stadol) 1 mg IVPUSH Q1H PRN PRN Reason: Pain Carboprost Tromethamine (Hemabate Ds) 250 mcg IM ASDIRECTED PRN PRN Reason: Post Hemorrhage Docusate Sodium (Colace) 100 mg PO BID PRN PRN Reason: Constipation Emollient Ointment (Lansinoh Hpa) 0 gm TOP ASDIRECTED PRN PRN Reason: Sore Nipples Oxytocin/Sodium Chloride (Oxytocin 30 Unit/500 Ml-Ns) 30 unit in 500 mls @ 999 mls/hr IV TITRATE [facility] Tranexamic Acid 1,000 mg/ (Sodium Chloride) 110 mls @ 660 mls/hr IV ONETIME PRN PRN Reason: Bleeding Lactated Ringer's (Ringers, Lactated) 1,000 mls @ 150 mls/hr IV ASDIRECTED BENEDICTO Last Admin: 09/26/20 01:01 Dose: 150 mls/hr Documented by: Ibuprofen (Motrin) 800 mg PO Q8H PRN PRN Reason: Pain Last Admin: 09/26/20 07:35 Dose: 800 mg Documented by: Lidocaine HCl (Xylocaine 1%) 50 ml INJECT ONETIME PRN PRN Reason: Laceration repair Methylergonovine Maleate (Methergine) 0.2 mg IM ASDIRECTED PRN PRN Reason: Post Hemorrhage Methylergonovine Maleate (Methergine) 0.2 mg IM Q4H PRN PRN Reason: Bleeding Last Admin: 09/26/20 06:13 Dose: 0.2 mg Documented by: Misoprostol (Cytotec) 200 mcg PO ONETIME PRN PRN Reason: Post Hemorrhage Nalbuphine HCl (Nubain) 10 mg IVPUSH Q1H PRN PRN Reason: Pain (severe 7-10) Oxycodone HCl (Oxycodone) 5 mg PO Q2H PRN PRN Reason: Pain Sodium Chloride (Saline Flush) 10 ml FLUSH ASDIRECTED PRN PRN Reason: Keep Vein Open Sodium Chloride (Saline Flush) 2.5 ml FLUSH ASDIRECTED PRN PRN Reason: Keep Vein Open Sodium Chloride (Normal Saline) 10 ml IV ASDIRECTED PRN PRN Reason: IV Use Sterile Water (Sterile Water For Irrigation) 1,000 ml IRR ASDIRECTED PRN PRN Reason: delivery Benita Robbins (Tucks) 1 pad TOP ASDIRECTED PRN PRN Reason: comfort care Last Admin: 09/26/20 04:25 Dose: 1 tub Documented by: Discontinued Medications Fentanyl (Sublimaze) Confirm Administered Dose 100 mcg .ROUTE .STK-MED ONE Stop: 09/25/20 23:27 Last Admin: 09/26/20 09:45 Dose: Not Given Documented by: Ropivacaine (Naropin 0.2%) Confirm Administered Dose 100 mls @ as directed .ROUTE .STK-MED ONE Stop: 09/25/20 23:28 Last Admin: 09/26/20 09:45 Dose: Not Given Documented by: Misoprostol (Cytotec) Confirm Administered Dose 1,000 mcg .ROUTE .STK-MED ONE Stop: 09/26/20 06:47 Last Admin: 09/26/20 09:45 Dose: Not Given Documented by: Misoprostol (Cytotec) 1,000 mcg RECTAL ONETIME ONE Stop: 09/26/20 07:31 Last Admin: 09/26/20 06:54 Dose: 1,000 mcg Documented by: Ropivacaine (Naropin 0.2%) Confirm Administered Dose 20 ml .ROUTE .STK-MED ONE Stop: 09/25/20 23:28 Last Admin: 09/26/20 09:45 Dose: Not Given Documented by: - Interaction Disposition, : in Room with Family Infant Interaction: Holding Feeding: Bottle Fed Infant Support Person: Other (see below) - Recovery Exam Fundal Tone: Firm Fundal Level: 1 Fingerbreadths Below Umbilicus Fundal Placement: Midline Lochia Amount: Scant Lochia Color: Rubra/Red Perineum Description: Intact, Minimal Bruising/Swelling Episiotomy/Laceration: None Bladder Status: Voiding Urinary Elimination: Voided - Exam General: Alert, Oriented HEENT: Pupils Equal Neck: Supple Lungs: Clear to Auscultation, Normal Respiratory Effort Cardiovascular: Regular Rate, Regular Rhythm GI/Abdominal Exam: Soft, Non-Tender, No Organomegaly, No Distention, No Mass Extremities: Normal Inspection, Normal Range of Motion, Non-Tender, No Pedal Edema, Normal Capillary Refill Skin: Warm, Dry, Intact Wound/Incisions: Healing Well Neurological: No New Focal Deficit Psy/Mental Status: Alert, Normal Affect, Normal Mood - Problem List & Annotations (1) Vaginal delivery SNOMED Code(s): 980185903 Code(s): O80 - ENCOUNTER FOR FULL-TERM UNCOMPLICATED DELIVERY Status: Acute Current Visit: Yes Onset Date: ~09/26/20 - Problem List Review Problem List Initiated/Reviewed/Updated: Yes - Assessment Assessment:: 25 year old at 41+1 gestation presented in spontaneous labor augmented with AROM, delivered viable female infant, apgars 8 & 9. Some small perineal abrasions noted - not repaired as they were hemostatic. Mom and baby stable. Anemic Hgb 7.3 - asymptomatic hemodynamically stable. - Plan Plan:: 1. D/c home today 2. Anemia - given hgb this am, would recommend IV iron infusion - patient declines and states she would prefer oral iron outpatient. Asymptomatic and hemodynamically stable, vitals wnl. Bleeding controlled and lochia now minimal. Anemia precautions reviewed. <Keith Sanchez - Last Filed: 09/27/20 09:14> - General Info Admission Dx/Problem (Free Text): 25yo s.p PPD1 , Anemia asymptomatic Functional Status: Reports: Tolerating Diet, Ambulating, Urinating - Patient Data Vital Signs - Most Recent: Last Vital Signs Temp 36.5 C 09/27/20 04:03 Pulse 77 09/27/20 04:03 Resp 16 09/27/20 04:03 BP 109/70 09/27/20 04:03 Pulse Ox 98 09/27/20 04:03 Lab Results - Last 24 Hours: Laboratory Results - last 24 hr 09/26/20 09/27/20 Range/Units 12:05 05:20 WBC 11.89 H (4.0-11.0) K/uL RBC 3.50 L (4.30-5.90) M/uL Hgb 9.3 L 7.3 L (12.0-16.0) g/dL Hct 28.6 L 22.9 L (36.0-46.0) % MCV 81.7 (80.0-98.0) fL MCH 26.6 L (27.0-32.0) pg MCHC 32.5 (31.0-37.0) g/dL RDW Std Deviation 42.0 (28.0-62.0) fl RDW Coeff of Jennifer 14 (11.0-15.0) % Plt Count 258 (150-400) K/uL MPV 9.70 (7.40-12.00) fL Nucleated RBC % 0.0 /100WBC Nucleated RBCs # 0 K/uL Med Orders - Current: Current Medications Acetaminophen (Tylenol Extra Strength) 1,000 mg PO Q6H PRN PRN Reason: Pain Last Admin: 09/26/20 05:51 Dose: 1,000 mg Documented by: Benzocaine/Menthol (Dermoplast Pain Relief 20%-0.5% [place]) 78 gm TOP ASDIRECTED PRN PRN Reason: Perineal Comfort Measure Last Admin: 09/26/20 04:25 Dose: 1 canister Documented by: Bisacodyl (Dulcolax) 10 mg RECTAL ONETIME PRN PRN Reason: Constipation Butorphanol Tartrate (Stadol) 1 mg IVPUSH Q1H PRN PRN Reason: Pain Carboprost Tromethamine (Hemabate Ds) 250 mcg IM ASDIRECTED PRN PRN Reason: Post Hemorrhage Docusate Sodium (Colace) 100 mg PO BID PRN PRN Reason: Constipation Emollient Ointment (Lansinoh Hpa) 0 gm TOP ASDIRECTED PRN PRN Reason: Sore Nipples Oxytocin/Sodium Chloride (Oxytocin 30 Unit/500 Ml-Ns) 30 unit in 500 mls @ 999 mls/hr IV TITRATE BENEDICTO Tranexamic Acid 1,000 mg/ (Sodium Chloride) 110 mls @ 660 mls/hr IV ONETIME PRN PRN Reason: Bleeding Lactated Ringer's (Ringers, Lactated) 1,000 mls @ 150 mls/hr IV ASDIRECTED BENEDICTO Last Admin: 09/26/20 01:01 Dose: 150 mls/hr Documented by: Ibuprofen (Motrin) 800 mg PO Q8H PRN PRN Reason: Pain Last Admin: 09/26/20 07:35 Dose: 800 mg Documented by: Lidocaine HCl (Xylocaine 1%) 50 ml INJECT ONETIME PRN PRN Reason: Laceration repair Methylergonovine Maleate (Methergine) 0.2 mg IM ASDIRECTED PRN PRN Reason: Post Hemorrhage Methylergonovine Maleate (Methergine) 0.2 mg IM Q4H PRN PRN Reason: Bleeding Last Admin: 09/26/20 06:13 Dose: 0.2 mg Documented by: Misoprostol (Cytotec) 200 mcg PO ONETIME PRN PRN Reason: Post Hemorrhage Nalbuphine HCl (Nubain) 10 mg IVPUSH Q1H PRN PRN Reason: Pain (severe 7-10) Oxycodone HCl (Oxycodone) 5 mg PO Q2H PRN PRN Reason: Pain Sodium Chloride (Saline Flush) 10 ml FLUSH ASDIRECTED PRN PRN Reason: Keep Vein Open Sodium Chloride (Saline Flush) 2.5 ml FLUSH ASDIRECTED PRN PRN Reason: Keep Vein Open Sodium Chloride (Normal Saline) 10 ml IV ASDIRECTED PRN PRN Reason: IV Use Sterile Water (Sterile Water For Irrigation) 1,000 ml IRR ASDIRECTED PRN PRN Reason: delivery Witch Itzel (Tucks) 1 pad TOP ASDIRECTED PRN PRN Reason: comfort care Last Admin: 09/26/20 04:25 Dose: 1 tub Documented by: Discontinued Medications Fentanyl (Sublimaze) Confirm Administered Dose 100 mcg .ROUTE .STK-MED ONE Stop: 09/25/20 23:27 Last Admin: 09/26/20 09:45 Dose: Not Given Documented by: Ropivacaine (Naropin 0.2%) Confirm Administered Dose 100 mls @ as directed .ROUTE .STK-MED ONE Stop: 09/25/20 23:28 Last Admin: 09/26/20 09:45 Dose: Not Given Documented by: Misoprostol (Cytotec) Confirm Administered Dose 1,000 mcg .ROUTE .STK-MED ONE Stop: 09/26/20 06:47 Last Admin: 09/26/20 09:45 Dose: Not Given Documented by: Misoprostol (Cytotec) 1,000 mcg RECTAL ONETIME ONE Stop: 09/26/20 07:31 Last Admin: 09/26/20 06:54 Dose: 1,000 mcg Documented by: Ropivacaine (Naropin 0.2%) Confirm Administered Dose 20 ml .ROUTE .STK-MED ONE Stop: 09/25/20 23:28 Last Admin: 09/26/20 09:45 Dose: Not Given Documented by: - Problem List & Annotations (1) Vaginal delivery SNOMED Code(s): 103957593 Code(s): O80 - ENCOUNTER FOR FULL-TERM UNCOMPLICATED DELIVERY Status: Acute Current Visit: Yes Onset Date: ~09/26/20 - Problem List Review Problem List Initiated/Reviewed/Updated: Yes - Assessment Assessment:: 25yo P3 s/p PPD 1 Anemia asymtomatic , declines iron transfusion, will do oral iron Normal lochia - Plan Plan:: Agree with plan , discharge home today
== END 2020-09-27 12:15 | disposition home or self-care (01) | DRG 807 ==
LOC: MW.OBCHECK 21:12 → MW.OB 21:14 → MW.OBCHECK 22:18 → MW.OB 22:18 → OBSVTOIN 09-26 02:39 → MW.OB 09-26 04:52
PROVIDERS: ADMIT Obstetrics & Gynecology; ATTEND Obstetrics & Gynecology
PROC: 10E0XZZ Delivery of Products of Conception, External Approach (ICD-10-PCS; principal; 2020-09-26)
PROC: 10907ZC Drainage of Amniotic Fluid, Therapeutic from Products of Conception, Via Natural or Artificial Opening (ICD-10-PCS; 2020-09-26)
PROC: 3E0R3BZ Introduction of Anesthetic Agent into Spinal Canal, Percutaneous Approach (ICD-10-PCS; 2020-09-26)
PROC: 00HU33Z Insertion of Infusion Device into Spinal Canal, Percutaneous Approach (ICD-10-PCS; 2020-09-26)
DX: O48.0 Post-term pregnancy (principal); Z37.0 Single live birth; Z3A.41 41 weeks gestation of pregnancy; O99.02 Anemia complicating childbirth; D64.9 Anemia, unspecified
CPT/HCPCS: 36415; 51702; 59025; 59409; 82803; 85014; 85018; 85027; 86592; 86850; 86900; 86901; 86920; 86921; 86922; A9270-GY; J2210; J2795; J3010; J7120

== ENCOUNTER 2021-01-21 09:28 | Emergency (ER) | payer MEDICAID ==
[2021-01-21] MEDS ORDERED: Amoxicillin 500 MG Cap PO ONE (09:57)
--- NOTE | 2021-01-21 10:01 | EDM.PDOC ---
ED HPI GENERAL MEDICAL PROBLEM - General Chief Complaint: Respiratory Problem Stated Complaint: phlegm Time Seen by Provider: 01/21/21 09:46 - History of Present Illness INITIAL COMMENTS - FREE TEXT/NARRATIVE: CHIEF COMPLAINT(S): Ear pain and sore throat HISTORY OF PRESENT ILLNESS: This is a 26-year-old and with a past medical history of seasonal allergies who comes to the emergency department with a chief complaint of sore throat and ear pain. The patient states that for approximately 1 week now she has been experiencing bilateral ear pain. She states that the right side is worse than the left. She has some runny nose which is clear and yesterday she started to develop a sore throat. She denies any fevers, chills, cough, nausea, vomiting, or diarrhea. She states that she currently does not have any pain. She has not yet tried anything for the ear pain or the sore throat. Therefore there are no relieving factors. There are no aggravating factors. She denies any headache, blurry vision, diplopia. REVIEW OF SYSTEMS: Constitutional: Denies fever, chills. Eyes: Denies eye pain Ears, Nose, Mouth, & Throat: Positive for earache and sore throat Cardiovascular: Denies chest pain Respiratory: Denies shortness of breath Gastrointestinal: Denies Nausea, vomiting, diarrhea, hematochezia. Genitourinary: Denies hematuria Skin:Denies a rash MSK: Denies joint pain Neurological: Denies blurred vision, headache, diplopia, numbness, tingling, weakness Psychiatric: Denies depression PAST MEDICAL HISTORY: As per history of present illness and as reviewed below otherwise noncontributory. SURGICAL HISTORY: As per history of present illness and as reviewed below otherwise noncontributory. SOCIAL HISTORY: As per history of present illness and as reviewed below otherwise noncontributory. FAMILY HISTORY: As per history of present illness and as reviewed below otherwise noncontributory. EXAMINATION OF ORGAN SYSTEMS/BODY AREAS: Constitutional: Blood pressure is 103/68, heart rate 80, respirate 16 with an oxygen saturation 97% on room air. Temperature 36.3 General: Overall well-appearing woman who is in no acute distress Psychiatric: Appropriate mood and affect. Eyes: No scleral icterus or conjunctival erythema ENMT: Moist mucous membranes. No pharyngeal erythema left tympanic membrane without any bulging, erythema or effusion. Right tympanic membrane with bulging, erythema and effusion. There are no tonsillar exudates or swelling. Uvula was midline without any swelling. Cobblestoning of the posterior pharynx is apparent. Bilateral nasal turbinates with clear nasal drainage. No stridor. Cardiovascular: Regular, rate, and rhythm. No gallops, murmurs, or rubs. Bilateral upper extremity pulses symmetric and intact. No peripheral edema. No JVD. Respiratory: Lungs clear to auscultation bilaterally. No wheezes, rales, or rhonchi. Skin: No lesions or abrasions. Neurological: Alert, GCS 15 MEDICAL DECISION MAKING AND COURSE IN THE ED WITH INTERPRETATION/REVIEW OF DIAGNOSTIC STUDIES: This is a 26-year-old with a past medical history of seasonal allergies who comes to the emergency department with bilateral ear pain and sore throat. At this time I do suspect that the patient has otitis media in her right ear and I do believe her symptoms are exacerbated by her seasonal allergies. We will start the patient on antibiotics for the otitis media. I did discuss the use of Zyrtec, Elsy pot, and Flonase. She is to take Tylenol and Motrin for pain. I do not believe any labs or imaging are indicated. She was given strict return precautions. The patient was amenable discharge and had no further questions. DISPOSITION: The patient was discharged home in stable condition she will follow up with her primary care physician in 3 to 5 days CONDITION: Fair PROCEDURES: None FINAL IMPRESSION(S)/DIAGNOSES: 1. Acute right-sided otitis media with effusion 2. Acute allergic postnasal drip 3. Acute allergic rhinitis Joel Helm M.D. Nose Pain Score (Numeric/FACES): 3 - Related Data Allergies Allergy/AdvReac Type Severity Reaction Status Date / Time No Known Allergies Allergy Verified 01/21/21 09:41 Home Meds: Home Meds Amoxicillin [Amoxil] 875 mg PO Q12HR #10 tab 01/21/21 [Rx] Fluticasone Propionate [Flonase] 16 gm .XX BID #1 bottle 01/21/21 [Rx] Past Medical History - Past Health History Medical/Surgical History: Denies Medical/Surgical History Gastrointestinal History: Reports: None IT ARCHITECT History: Reports: - Infectious Disease History Infectious Disease History: Reports: Chicken Pox Social & Family History - Family History Family Medical History: No Pertinent Family History HEENT: Reports: None Psychiatric: Reports: Emotional Problems Oncologic: Reports: Breast - Tobacco Use Tobacco Use Status *Q: Never Tobacco User - Caffeine Use Caffeine Use: Reports: None - Recreational Drug Use Recreational Drug Use: No ED ROS GENERAL - Review of Systems Review Of Systems: See Below ED EXAM, GENERAL - Physical Exam Exam: See Below Course - Vital Signs Last Recorded V/S: Last Vital Signs Temp 36.3 C 01/21/21 09:42 Pulse 80 01/21/21 09:42 Resp 16 01/21/21 09:42 BP 103/68 01/21/21 09:42 Pulse Ox 97 01/21/21 09:42 - Orders/Labs/Meds Meds: Medications Discontinued Medications Generic Name Dose Route Start Last Admin Trade Name Beth PRN Reason Stop Dose Admin Amoxicillin 1,000 mg 01/21/21 09:57 01/21/21 17:13 Amoxicillin 500 Mg Cap PO 01/21/21 09:58 Not Given ONETIME ONE Amoxicillin Confirm 01/21/21 10:43 01/21/21 10:49 Amoxicillin 500 Mg Cap Administered 01/21/21 10:44 500 mg Dose Administration 500 mg .ROUTE .STK-MED ONE Departure - Departure Time of Disposition: 10:00 Disposition: Home, Self-Care 01 Condition: Fair Clinical Impression: Otitis media, Seasonal allergies - Discharge Information *PRESCRIPTION DRUG MONITORING PROGRAM REVIEWED*: No *COPY OF PRESCRIPTION DRUG MONITORING REPORT IN PATIENT SPIKE: No Prescriptions: Amoxicillin [Amoxil] 875 mg PO Q12HR #10 tab Fluticasone Propionate [Flonase] 16 gm .XX BID #1 bottle Instructions: Otitis Media, Adult, [id number], Allergic Rhinitis, Adult, [id number] Referrals: Vee Kellogg NP [Primary Care Provider] - Forms: ED Department Discharge Additional Instructions: Your evaluated today on an emergent basis. I do believe you have a right ear infection which is exacerbated by your congestion from your seasonal allergies. At this time we started you on amoxicillin. Amoxicillin was sent to your pharmacy please complete all of the doses. In addition to the antibiotics I would like you to use a saline nasal rinse twice a day, Zyrtec 1 tablet a day, and Flonase twice a day. If you have any worsening of your symptoms you are welcome to return to the emergency department otherwise please follow-up with primary care physician in 1 week. [facility] [address] [place] [address] [facility] [address] [place] [address] The patient is informed of any results of their evaluation and diagnostic workup and all questions are answered. They are given discharge instructions and return precautions. The patient is stable for discharge. The patient states they understand and agree with the plan and that they will return if their symptoms get worse or if they have any new concerns. The following information is given to patients seen in the emergency department who are being discharged to home. This information is to outline your options fo r follow-up care. We provide all patients seen in our emergency department with a follow-up referral. The need for follow-up, as well as the timing and circumstances, are variable depending upon the specifics of your emergency department visit. If you don't have a primary care physician on staff, we will provide you with a referral. We always advise you to contact your personal physician following an emergency department visit to inform them of the circumstance of the visit and for follow-up with them and/or the need for any referrals to a consulting specialist. The emergency department will also refer you to a specialist when appropriate. This referral assures that you have the opportunity for follow-up care with a specialist. All of these measure are taken in an effort to provide you with optimal care, which includes your follow-up. Under all circumstances we always encourage you to contact your private physician who remains a resource for coordinating your care. When calling for follow-up care, please make the office aware that this follow-up is from your recent emergency room visit. If for any reason you are refused follow-up, please contact the [facility] Emergency Department at and asked to speak to the emergency department charge nurse. Sepsis Event Note (ED) - Evaluation Sepsis Screening Result: No Definite Risk - Focused Exam Vital Signs: Vital Signs Temp Pulse Resp BP Pulse Ox 01/21/21 09:42 36.3 C 80 16 103/68 97
[2021-01-21] MEDS ORDERED: Amoxicillin 500 MG Cap ONE (10:43)
== END 2021-01-21 10:50 | disposition home or self-care (01) ==
LOC: MW.ED 09:28
DX: J30.2 Other seasonal allergic rhinitis (principal); H65.191 Other acute nonsuppurative otitis media, right ear
CPT/HCPCS: 99282; A9270

== ENCOUNTER 2021-04-02 12:37 | Emergency (ER) | payer MEDICAID, OTHER ==
[2021-04-02] MEDS ORDERED: Ketorolac 60 MG/2 ML SDV IM ONE (16:09)
[2021-04-02] MEDS ORDERED: Amoxicillin/Clavulanate K 875-125 MG Tab PO ONE (16:12)
--- NOTE | 2021-04-02 16:14 | EDM.PDOC ---
ED HPI GENERAL MEDICAL PROBLEM - General Chief Complaint: General Stated Complaint: SINUS HEADACH Time Seen by Provider: 04/02/21 16:04 Source of Information: Reports: Patient History Limitations: Reports: No Limitations - History of Present Illness INITIAL COMMENTS - FREE TEXT/NARRATIVE: HISTORY AND PHYSICAL: History of present illness: Patient is a 26-year-old female who presents to the emergency department with complaints of nonproductive cough, bilateral ear pain, sinus pressure for 2 days. The patient has used Sudafed and Claritin without success. The patient has been having this ongoing problem for about 2 months. She states she will clear up for a few days and then the process will start again. She does not appreciate any modifiers. She has not been on any antibiotics for this. Patient denies any fever, chills, headache, change in vision, syncope or near syncope. Denies any chest pain, back pain, or shortness of breath. Denies any abdominal pain, nausea, vomiting, diarrhea, constipation or dysuria. Has not noted any blood in urine or stool. Patient has been eating and drinking appropriately. Review of systems: As per history of present illness and below otherwise all systems reviewed and negative. Past medical history: As per history of present illness and as reviewed below otherwise noncontributory. Surgical history: As per history of present illness and as reviewed below otherwise noncontributory. Social history: See social history for further information Family history: As per history of present illness and as reviewed below otherwise noncontributory. Physical exam: General: Well developed and well nourished. Alert and orientated x 3. Nontoxic in appearance and in no acute distress. Vital signs are stable and have been rev iewed by me. Nursing notes were reviewed. HEENT: Atraumatic, normocephalic, pupils equal and reactive bilaterally, negative for conjunctival pallor or scleral icterus, mucous membranes moist, TMs normal bilaterally, throat clear, neck supple, nontender, trachea midline. No drooling or trismus noted. No meningeal signs. No hot potato voice noted. Lungs: Clear to auscultation bilaterally. No wheezes, rales, or rhonchi. Chest nontender. Normal work of breathing, no accessory muscles used. Heart: S1S2, regular rate and rhythm without overt murmur, gallops, or rubs. No JVD. No peripheral edema Abdomen: Soft, nondistended, nontender. Normoactive bowel sounds. Negative for masses or costovertebral tenderness. Skin: Intact, warm, dry. No lesions or rashes noted. Hematologic: No petechiae or purpra. Mucosa appropriate color and normal nail bed color and refill. Extremities: Atraumatic, moves all extremities per self without difficulty or deficits, negative for cords or calf pain. Neurovascular unremarkable. Neuro: Awake, alert, oriented. Cranial nerves II through XII unremarkable. Cerebellum unremarkable. Motor and sensory unremarkable throughout. Exam nonfocal. Psychiatric: Mood and affect are appropriate. Normal thought process. Answering questions appropriately. Notes: *This patient was seen and evaluated during the 2019 SARS-CoV-2 novel coronavirus pandemic period. Community viral transmission is ongoing at time of this encounter and the emergency department is operating under pandemic response procedures. As stated above the patient is a 26-year-old female who presents with this ongoing worsening cough, ear pain, and sinus pressure. After examination and patient history I will treat with Augmentin twice daily p.o. for 7 days. I will treat the patient's discomfort in the emergency department with Toradol 60 mg intramuscular. The patient is agreeable with this plan. I have talked with the patient about today's findings, in addition to providing specific details for plan of care. Reassessment at the time of disposition demonstrates that the patient is in no acute distress. The patient is stable for discharge, counseling was provided and we discussed in great detail signs and symptoms that would prompt them to return to the Emergency Department. Medication, follow up and supportive care measures were reviewed and discussed. Voices understanding and is agreeable to plan of care. Denies any further questions or concerns at this time. Therapeutics: Toradol 60 mg IM, Augmentin Prescription: Augmentin twice a day for 7 days Impression: Sinusitis Plan: 1. You were evaluated today on an emergent basis. Your complaints of headache, sinus congestion, ear pressure, cough for the last 2 days was evaluated and found to have sinus infection/possible strep infection. I am treating you with Augmentin twice a day for 7 days. Please ensure you take the full course of the antibiotic. I have treated your headache with Toradol 60 mg IM in the emergency department. You can take Flonase at home to help with decongestion. 2. You can alternate Tylenol and ibuprofen as needed for pain and fever management. 3. We encourage you to follow up with your primary care provider and/or recommended specialist in the next few days for re-evaluation and further care/management. 4. If your symptoms should worsen, new symptoms develop or any of the signs and symptoms we discussed should arise please return to the emergency room or call 911 (if needed). Definitive disposition and diagnosis as appropriate pending reevaluation and review of above. sinus Pain Score (Numeric/FACES): 2 - Related Data Allergies Allergy/AdvReac Type Severity Reaction Status Date / Time No Known Allergies Allergy Verified 04/02/21 16:05 Home Meds: Home Meds Amoxicillin/Potassium Clav [Augmentin 875-125 Tablet] 1 each PO BID 7 Days #14 tablet 04/02/21 [Rx] Past Medical History - Past Health History Medical/Surgical History: Denies Medical/Surgical History Gastrointestinal History: Reports: None [employer] History: Reports: - Infectious Disease History Infectious Disease History: Reports: Chicken Pox Social & Family History - Family History Family Medical History: No Pertinent Family History HEENT: Reports: None Psychiatric: Reports: Emotional Problems Oncologic: Reports: Breast - Caffeine Use Caffeine Use: Reports: None ED ROS GENERAL - Review of Systems Review Of Systems: Comprehensive ROS is negative, except as noted in HPI. ED EXAM, GENERAL - Physical Exam Exam: See Below (See dictation) Course - Vital Signs Last Recorded V/S: Last Vital Signs Temp 97.7 F 04/02/21 16:29 Pulse 88 04/02/21 16:29 Resp 16 04/02/21 16:29 BP 111/77 04/02/21 16:29 Pulse Ox 100 04/02/21 16:29 - Orders/Labs/Meds Meds: Medications Discontinued Medications Generic Name Dose Route Start Last Admin Trade Name Freq PRN Reason Stop Dose Admin Amoxicillin/Clavulanate Potassium 1 tab 04/02/21 16:12 04/02/21 16:28 Amoxicillin/Clavulanate K 875-125 Mg Tab PO 04/02/21 16:13 1 tab ONETIME ONE Administration Ketorolac Tromethamine 60 mg 04/02/21 16:09 04/02/21 16:28 Ketorolac 60 Mg/2 Ml Sdv IM 04/02/21 16:10 60 mg ONETIME ONE Administration Departure - Departure Time of Disposition: 16:14 Disposition: Home, Self-Care 01 Condition: Good Clinical Impression: Sinusitis Qualifiers: Sinusitis location: frontal Chronicity: acute Recurrence: non-recurrent Qualified Code(s): J01.10 - Acute frontal sinusitis, unspecified - Discharge Information *PRESCRIPTION DRUG MONITORING PROGRAM REVIEWED*: Not Applicable *COPY OF PRESCRIPTION DRUG MONITORING REPORT IN PATIENT SPIKE: Not Applicable Prescriptions: Amoxicillin/Potassium Clav [Augmentin 875-125 Tablet] 1 each PO BID 7 Days #14 tablet Instructions: Sinusitis, Adult, [id number] Referrals: Corinne Quispe PA [Primary Care Provider] - Forms: ED Department Discharge Additional Instructions: The following information is given to patients seen in the emergency department who are being discharged to home. This information is to outline your options for follow-up care. We provide all patients seen in our emergency department with a follow-up referral. The need for follow-up, as well as the timing and circumstances, are variable depending upon the specifics of your emergency department visit. If you don't have a primary care physician on staff, we will provide you with a referral. We always advise you to contact your personal physician following an emergency department visit to inform them of the circumstance of the visit and for follow-up with them and/or the need for any referrals to a consulting specialist. The emergency department will also refer you to a specialist when appropriate. This referral assures that you have the opportunity for follow-up care with a specialist. All of these measure are taken in an effort to provide you with optimal care, which includes your follow-up. Under all circumstances we always encourage you to contact your private physician who remains a resource for coordinating your care. When calling for follow-up care, please make the office aware that this follow-up is from your recent emergency room visit. If for any reason you are refused follow-up, please contact the [facility] Emergency Department at and asked to speak to the emergency department charge nurse. [facility] [address] [place] [id number] [address] [id number] Plan: 1. You were evaluated today on an emergent basis. Your complaints of headache, sinus congestion, ear pressure, cough for the last 2 days was evaluated and found to have sinus infection/possible strep infection. I am treating you with Augmentin twice a day for 7 days. Please ensure you take the full course of the antibiotic. I have treated your headache with Toradol 60 mg IM in the emergency department. You can take Flonase at home to help with decongestion. 2. You can alternate Tylenol and ibuprofen as needed for pain and fever management. 3. We encourage you to follow up with your primary care provider and/or recommended specialist in the next few days for re-evaluation and further care/management. 4. If your symptoms should worsen, new symptoms develop or any of the signs and symptoms we discussed should arise please return to the emergency room or call 911 (if needed). Sepsis Event Note (ED) - Evaluation Sepsis Screening Result: No Definite Risk
== END 2021-04-02 16:33 | disposition home or self-care (01) ==
LOC: MW.ED 12:37
DX: J01.10 Acute frontal sinusitis, unspecified (principal)
CPT/HCPCS: 96372; 99283; A9270; J1885; 99282

== ENCOUNTER 2022-04-07 10:34 | Emergency (ER) | payer MEDICAID | END 2022-04-07 12:05 | disposition home or self-care (01) | LOC: MW.ED 10:34 | DX: O20.0 Threatened abortion (principal) | CPT/HCPCS: 36415; 81001; 84702; 99284 ==

== ENCOUNTER 2022-11-02 19:21 | Emergency (ER) | payer BC ==
[2022-11-02] MEDS ORDERED: Azithromycin 250 MG Tab PO ONE (21:00)
== END 2022-11-02 21:07 | disposition home or self-care (01) ==
LOC: MW.ED 19:21
DX: J02.9 Acute pharyngitis, unspecified (principal)
CPT/HCPCS: 99283; A9270

== ENCOUNTER 2022-12-05 21:49 | Inpatient (IN) | payer BC ==
[2022-12-06] MEDS ORDERED: Lidocaine 1% 50 ML MDV INJECT PRN (02:04)
[2022-12-06] MEDS ORDERED: Water For Irrigation,Sterile 1,000 ML Container IRR PRN (02:04)
[2022-12-06] MEDS ORDERED: Sodium Chloride 0.9% 10 ML Syringe FLUSH PRN (02:04)
[2022-12-06] MEDS ORDERED: Butorphanol 1 MG/ML SDV IVPUSH PRN (02:04)
[2022-12-06] MEDS ORDERED: Methylergonovine 0.2 MG/1 ML Amp IM PRN (02:04)
[2022-12-06] MEDS ORDERED: Sodium Chloride 0.9% 2.5 ML Syringe FLUSH PRN (02:04)
[2022-12-06] MEDS ORDERED: Tranexamic Acid 1,000 MG in Sodium Chloride 0.9% 100 ML IV PRN (02:04)
[2022-12-06] MEDS ORDERED: Carboprost Tromethamine 250 MCG/1 ML Amp IM PRN (02:04)
[2022-12-06] MEDS ORDERED: Sodium Chloride 0.9% 20 ML SDV IV PRN (02:04)
[2022-12-06] MEDS ORDERED: Misoprostol 200 MCG Tab PO PRN (02:04)
[2022-12-06] MEDS ORDERED: Terbutaline 1 MG/ML SDV SUBCUT PRN (02:04)
[2022-12-06] MEDS ORDERED: Ondansetron 4 MG/2 ML SDV IVPUSH PRN (02:04)
[2022-12-06] MEDS ORDERED: Oxytocin/0.9 % Sodium Chloride 30 UNIT/500 ML BAG IV SCH ×2 (02:15)
[2022-12-06] MEDS: Lactated Ringers 1,000 ML IV SCH ×4 (04:08→17:04)
[2022-12-06] MEDS ORDERED: ePHEDrine 50 MG/ML SDV IVPUSH PRN ×2 (09:53)
[2022-12-06] MEDS ORDERED: Phenylephrine HCl 0.5 MG/5 ML AMP IVPUSH PRN (09:53)
[2022-12-06] MEDS ORDERED: Ropivacaine HCl/PF 400 MG in Premix Bag 1 BAG EPIDUR SCH (10:00)
[2022-12-06] MEDS ORDERED: Dexmedetomidine 200 MCG/2 ML SDV ONE (15:47)
[2022-12-06] MEDS ORDERED: Lanolin 100% Cream 7 GM Tube TOP PRN (19:02)
[2022-12-06] MEDS ORDERED: Bisacodyl 10 MG Supp RECTAL PRN (19:02)
[2022-12-06] MEDS ORDERED: Acetaminophen 500 MG Tab PO PRN ×2 (19:02)
[2022-12-06] MEDS ORDERED: Ibuprofen 800 MG Tab PO PRN (19:02)
[2022-12-06] MEDS ORDERED: Docusate Sodium 100 MG Cap PO PRN (19:02)
[2022-12-06] MEDS ORDERED: oxyCODONE 5 MG Tab PO PRN (19:02)
[2022-12-06] MEDS ORDERED: Ibuprofen 400 MG Tab PO PRN (19:02)
[2022-12-06] MEDS ORDERED: Benzocaine/Menthol 20%-0.5% Spray 78 GM Cannister TOP PRN (19:02)
[2022-12-06] MEDS ORDERED: Witch Hazel Medicated Pads 40/Jar TOP PRN (19:02)
== END 2022-12-07 09:30 | disposition home or self-care (01) | DRG 560 ==
LOC: MW.OBCHECK 21:49 → MW.OB 21:50 → MW.OBCHECK 12-06 02:05 → MW.OB 12-06 08:24 → OBSVTOIN 12-06 18:40 → MW.OB 12-06 21:40
PROVIDERS: ADMIT Obstetrics & Gynecology; ATTEND Obstetrics & Gynecology
PROC: 10E0XZZ Delivery of Products of Conception, External Approach (ICD-10-PCS; principal; 2022-12-06)
PROC: 3E0R3BZ Introduction of Anesthetic Agent into Spinal Canal, Percutaneous Approach (ICD-10-PCS; 2022-12-06)
PROC: 00HU33Z Insertion of Infusion Device into Spinal Canal, Percutaneous Approach (ICD-10-PCS; 2022-12-06)
DX: O42.92 Full-term premature rupture of membranes, unspecified as to length of time between rupture and onset of labor (principal); Z3A.38 38 weeks gestation of pregnancy; Z37.0 Single live birth; Z33.3 Pregnant state, gestational carrier
CPT/HCPCS: 36415; 51702; 59025; 59409; 82803; 84112; 85014; 85018; 85027; 86592; 86850; 86900; 86901; A9270-GY; J2590; J3490; J7120

== ENCOUNTER 2023-12-07 21:49 | Emergency (ER) | payer BC, MEDICAID ==
[2023-12-07] MEDS: Acetaminophen 500 MG Tab PO ONE (22:34)
[2023-12-07 22:42] LABS: BASOPHILS ABSOLUTE AUTO 0.02 K/uL (0.00-0.20); BASOPHILS PERCENT AUTO 0.2 % (0.0-1.0); EOSINOPHILS PERCENT AUTO 1.1 % (0.0-6.0); HEMATOCRIT 35.9 % (37.0-47.0); HEMOGLOBIN 12.6 g/dL (12.0-16.0); IMMATURE GRAN ABSOLUTE AUTO 0.04 K/uL (0.00-0.05); IMMATURE GRAN PERCENT AUTO 0.4 % (0.0-0.4); LYMPHOCYTES ABSOLUTE AUTO 2.22 K/uL (1.00-4.80); LYMPHOCYTES PERCENT AUTO 24.6 % (24.0-44.0); MEAN CORPUSCULAR HEMOGLOBIN 29.9 pg (28.0-32.0); MEAN CORPUSCULAR HGB CONC 35.1 g/dL (32.0-36.0); MEAN CORPUSCULAR VOLUME 85.1 fL (83.0-99.0); MEAN PLATELET VOLUME 9.5 fL (9.4-12.3); MONOCYTES PERCENT AUTO 6.7 % (0.0-8.0); NEUTROPHILS ABSOLUTE AUTO 6.03 K/uL (1.80-7.70); PLATELET COUNT,PLT 273 K/uL (150-400); RED BLOOD CELL COUNT 4.22 M/uL (4.10-5.30); WHITE BLOOD CELL COUNT,WBC 9.01 K/uL (3.9-11.3)
[2023-12-07 22:50] LABS: APPEARANCE,URINE CLEAR; BILIRUBIN,URINE NEGATIVE (NEGATIVE); COLOR,URINE YELLOW; GLUCOSE,URINE NEGATIVE (NEGATIVE); KETONES,URINE TRACE mg/dL (NEGATIVE); LEUKOCYTE ESTERASE,URINE NEGATIVE (NEGATIVE); NITRITE,URINE NEGATIVE (NEGATIVE); OCCULT BLOOD,URINE SMALL (NEGATIVE); PH,URINE 5.5 (5.0-8.0); PROTEIN,URINE NEGATIVE (NEGATIVE); UROBILINOGEN,URINE 0.2 EU/dL (<2.0)
[2023-12-07 22:57] LABS: BACTERIA,URINE RARE (NEGATIVE); EPITHELIAL CELLS,URINE FEW (NONE-FEW); MUCUS,URINE MODERATE (NONE-MOD)
== END 2023-12-07 23:10 | disposition home or self-care (01) ==
LOC: MW.ED 21:49
DX: O20.0 Threatened abortion (principal); Z3A.15 15 weeks gestation of pregnancy; Z75.8 Other problems related to medical facilities and other health care
CPT/HCPCS: 36415; 81001; 85025; 99284; A9270

== ENCOUNTER 2024-06-01 16:55 | Inpatient (IN) | payer MEDICAID ==
[2024-06-01] MEDS ORDERED: Butorphanol 2 MG/ML SDV IVPUSH PRN (17:04)
[2024-06-01] MEDS ORDERED: Misoprostol 200 MCG Tab PO PRN (17:04)
[2024-06-01] MEDS ORDERED: Ondansetron 4 MG/2 ML SDV IVPUSH PRN (17:04)
[2024-06-01] MEDS ORDERED: Sodium Chloride 0.9% 20 ML SDV IV PRN (17:04)
[2024-06-01] MEDS ORDERED: Water For Irrigation,Sterile 1,000 ML Container IRR PRN (17:04)
[2024-06-01] MEDS ORDERED: Terbutaline 1 MG/ML SDV SUBCUT PRN (17:04)
[2024-06-01] MEDS ORDERED: Sodium Chloride 0.9% 2.5 ML Syringe FLUSH PRN (17:04)
[2024-06-01] MEDS ORDERED: Carboprost Tromethamine 250 MCG/1 mL Vial IM PRN (17:04)
[2024-06-01] MEDS ORDERED: Methylergonovine 0.2 MG/1 ML Amp IM PRN (17:04)
[2024-06-01] MEDS ORDERED: Sodium Chloride 0.9% 10 ML Syringe FLUSH PRN (17:04)
[2024-06-01] MEDS ORDERED: Lidocaine 1% 50 ML MDV INJECT PRN (17:04)
[2024-06-01] MEDS ORDERED: Oxytocin/0.9 % Sodium Chloride 30 UNIT/500 ML BAG IV SCH (17:15)
[2024-06-01] MEDS: Lactated Ringers 1,000 ML IV SCH (17:43)
[2024-06-01 18:04] LABS: HEMATOCRIT 31.9 % (37.0-47.0); HEMOGLOBIN 10.7 g/dL (12.0-16.0); MEAN CORPUSCULAR HEMOGLOBIN 27.6 pg (28.0-32.0); MEAN CORPUSCULAR HGB CONC 33.5 g/dL (32.0-36.0); MEAN CORPUSCULAR VOLUME 82.4 fL (83.0-99.0); MEAN PLATELET VOLUME 9.3 fL (9.4-12.3); PLATELET COUNT,PLT 248 K/uL (150-400); RED BLOOD CELL COUNT 3.87 M/uL (4.10-5.30); WHITE BLOOD CELL COUNT,WBC 8.61 K/uL (3.9-11.3)
[2024-06-01] MEDS: Misoprostol 25 MCG (1/4 of 100 MCG) Tab VAG PRN (19:39)
[2024-06-01] MEDS: Oxytocin/0.9 % Sodium Chloride 30 UNIT/500 ML BAG IV SCH (23:55)
[2024-06-02] MEDS ORDERED: Bupivacaine 0.5% 10 ML SDV ONE (04:00)
[2024-06-02] MEDS ORDERED: Phenylephrine HCl In 0.9% NaCl 1 MG/10 ML Syringe ONE (04:00)
[2024-06-02] MEDS ORDERED: Ropivacaine HCl/PF 200 ML ONE (04:00)
[2024-06-02] MEDS ORDERED: ePHEDrine 50 MG/ML SDV IM PRN (04:21)
[2024-06-02] MEDS ORDERED: Phenylephrine HCl In 0.9% NaCl 1 MG/10 ML Syringe IVPUSH PRN (04:21)
[2024-06-02] MEDS ORDERED: Bupivacaine 0.5% 10 ML SDV INJECT ONE (04:21)
[2024-06-02] MEDS ORDERED: ePHEDrine 50 MG/ML SDV IVPUSH PRN (04:21)
[2024-06-02] MEDS ORDERED: dexmedeTOMIDine HCl 200 MCG/2 ML SDV EPIDUR SCH (04:30)
[2024-06-02] MEDS: Ropivacaine HCl/PF 400 MG in Premix Bag 1 BAG EPIDUR SCH (04:34)
[2024-06-02] MEDS ORDERED: Benzocaine/Menthol 20%-0.5% Spray 78 GM Cannister TOP PRN (06:16)
[2024-06-02] MEDS ORDERED: oxyCODONE 5 MG Tab PO PRN (06:16)
[2024-06-02] MEDS ORDERED: Docusate Sodium 100 MG Cap PO PRN (06:16)
[2024-06-02] MEDS ORDERED: Witch Hazel Medicated Pads 40/Jar TOP PRN (06:16)
[2024-06-02 06:53] LABS: PH,UMBILICAL ARTERIAL 7.182 (7.18-7.38); PH,UMBILICAL VENOUS 7.337 (7.25-7.45)
[2024-06-02] MEDS: Ibuprofen 800 MG Tab PO PRN (11:22)
[2024-06-02 15:14] LABS: HEMATOCRIT 33.6 % (37.0-47.0); HEMOGLOBIN 11.1 g/dL (12.0-16.0)
[2024-06-03] MEDS: Acetaminophen 500 MG Tab PO PRN (07:47)
[2024-06-03] MEDS: Lanolin 100% Cream 7 GM Tube TOP PRN (07:47)
== END 2024-06-03 11:30 | disposition home or self-care (01) | DRG 807 ==
LOC: MW.OB 16:55 → MW.OBCHECK 16:55 → UNDOADMOB 17:04 → MW.OB 17:04 → OBSVTOIN 06-02 05:50 → INTOOBSV 06-02 05:50 → MW.OB 06-02 09:41 → OBSVTOIN 06-02 09:41
PROVIDERS: ADMIT Obstetrics & Gynecology; ATTEND Obstetrics & Gynecology
PROC: 10E0XZZ Delivery of Products of Conception, External Approach (ICD-10-PCS; principal; 2024-06-02)
DX: O48.0 Post-term pregnancy (principal); Z37.0 Single live birth; Z3A.40 40 weeks gestation of pregnancy; O99.02 Anemia complicating childbirth
CPT/HCPCS: 01967; 36415; 51702; 59025; 59409; 82803; 85014; 85018; 85027; 86592; 86850; 86900; 86901; A9270-GY; J0665; J2590; J2795; J7120